=== PATIENT | female | born 2005 | race Caucasian/White ===

== ENCOUNTER 2024-03-24 13:37 | Outpatient (CLI) | payer OTHER, SELFPAY ==
--- NOTE | ~2024-03-24 | MR_ITS ---
EXAMINATION: MR brain/brain stem wo/w con DATE: 03/24/2024 14:36 INDICATION: Worsening headaches. TECHNIQUE: Magnetic resonance imaging (MRI) of the brain and brainstem was performed without and with 15 mL MultiHance intravenous contrast. COMPARISON: None. FINDINGS: There is no intracranial hemorrhage, acute infarction, or abnormal intracranial mass lesion . The ventricles are normal in size. There is minimal mucosal thickening in right ethmoid sinus. The mastoid air cells are normal. The orbits are normal. The adenoids are enlarged. IMPRESSION: 1. Normal brain. 2. Enlarged adenoids. Reviewed, dictated and finalized at location E.
== END 2024-03-24 13:38 | disposition home or self-care (01) ==
PROVIDERS: PCP Pediatrics; Visit Provider Nurse Practitioner
DX: R51.9 Headache, unspecified (principal); R20.0 Anesthesia of skin; J35.2 Hypertrophy of adenoids
CPT/HCPCS: 70553; A9577